=== PATIENT | male | born 1995 | race Asian ===

== ENCOUNTER 2018-06-30 18:19 | Emergency (ER) | payer OTHER ==
[~2018-06-30] VITALS: Ht 177.8 cm; Wt 91.4 kg
[2018-06-30] MEDS ORDERED: DERMABOND TOPICAL SKIN ADHESIVE TOP ONE (19:45)
[2018-06-30 20:10] VITALS: BP 135/80
== END 2018-06-30 20:11 | disposition home or self-care (01) ==
LOC: M ED 18:19
DX: S01.111A Laceration without foreign body of right eyelid and periocular area, initial encounter (principal); S00.81XA Abrasion of other part of head, initial encounter; W19.XXXA Unspecified fall, initial encounter; Y92.89 Other specified places as the place of occurrence of the external cause; Y93.9 Activity, unspecified; Y99.1 Military activity